=== PATIENT | male | born 1990 | race Hispanic/Latino ===

== ENCOUNTER → 2022-04-03 | Outpatient (REF) ==
[2022-04-05 06:08] LABS: HERPES ZOSTER, VARICELLA IgG 1277 index (Immune >165); RUBEOLA IgG ANTIBODY 29.2 AU/mL (Immune >16.4)
== END ==
LOC: M LAB 15:30
PROVIDERS: ATTEND Nurse Practitioner Adult Health
DX: Z00.00 Encounter for general adult medical examination without abnormal findings (principal)

== ENCOUNTER → 2022-08-03 | Outpatient (REF) ==
[2022-08-03 14:07] LABS: RSV AMPLIFICATION NEGATIVE (NEGATIVE)
== END ==
LOC: M LABSMTC 10:27
PROVIDERS: ATTEND Family Medicine
DX: Z11.52 Encounter for screening for COVID-19 (principal)